=== PATIENT | male | born 1950 ===

== ENCOUNTER 2022-03-14 17:19 | Inpatient (IN) | payer OTHER ==
[~2022-03-14] VITALS: Ht 180.3 cm; Wt 108.5 kg
--- NOTE | 2022-03-15 16:44 | NUR ---
1530 arrived to room via gurney air transported from [facility]. pt restless,frequently attempting to get oob. pt states "i want to sit up, get my clothes and [facility]" pt able to state name, and that his left hip is broken, pt states he had 2 beer this morning and that uses "a lot" of marajuana pt making repeated attempts to call his on cell phone although has phone turned off and patient is unable to dial phone. Dr Gilmore here to see patient and orders received to transfer to PCU. pt transferred to pcu at 1630. dry pan charger Sendy Tate spoke with patients via phone to give her update on patient status
[2022-03-15] MEDS ORDERED: OMEP20ER PO (17:26)
[2022-03-15] MEDS ORDERED: Amlodipine Besyl5 MG PO (17:26)
[2022-03-15] MEDS ORDERED: Hair, Skin & N1 EACH PO (17:26)
[2022-03-15] MEDS ORDERED: CELE200 PO (17:27)
[2022-03-15] MEDS ORDERED: Cyclobenzaprine5 MG PO (17:28)
[2022-03-15] MEDS ORDERED: GLUC500 PO (17:30)
[2022-03-15] MEDS ORDERED: HYDR1TAB94 PO (17:30)
[2022-03-15] MEDS ORDERED: IBUP400 PO (17:31)
[2022-03-15] MEDS ORDERED: ONDA4 PO (17:31)
--- NOTE | 2022-03-15 18:42 | NUR ---
SHIFT SUMMARY PT ARRIVED TO PCU APPROX. 1634 VIA HOSPITAL BED. HE WAS VERY CONFUSED, AGITATED AND ANGRY AT TIMES. HE WAS ALERT TO SELF AND DEON ONLY. BP STABLE, HR SINUS TACHYCARDIA 100-120, SPO2>95% VIA ROOM AIR. HE DENIED FEELING NAUSEOUS WELL PAIN BUT APPEARED DIAPHORETIC, TREMULOUS AND AGITATED. SEE CIWA ASSESSMENT AND EMAR FOR MANAGEMENT OF ALCOHOL WITHDRAW. PT IS INCONTINENT OF URINE AND PER REPORT HAS HX OF PROSTATE CA. PER REPORT PT DRINKS APPROX. 7 BEERS/DAY, 21 CANS PER WEEK. PT STATED HE OCCASIONALLY DRINKS HARD ALCOHOL. SEE EMAR FOR PAIN MANAGEMENT. PT NOW APPEARS TO BE SLEEPING COMFORTABLY. CALL LIGHT IN REACH. PER REPORT, DEON IS ON HER WAY TO VISIT PT. BED ALARM IS ON.
[2022-03-16 03:56] LABS: BASOPHILS ABSOLUTE AUTO 0.02 K/mm3 (0.00-0.23); BASOPHILS PERCENT AUTO 0 % (0-2); EOSINOPHILS ABSOLUTE AUTO 0.06 K/mm3 (0.00-0.68); EOSINOPHILS PERCENT AUTO 1 % (0-6); Hematocrit 28.5 % (37.0-53.0); Hemoglobin 9.7 g/dL (13.5-17.5); IMMATURE GRAN ABSOLUTE AUTO 0.06 K/mm3 (0.00-0.10); IMMATURE GRAN PERCENT AUTO 1 % (0-1); LYMPHOCYTES ABSOLUTE AUTO 0.32 K/mm3 (0.84-5.20); LYMPHOCYTES PERCENT AUTO 5 % (21-46); MONOCYTES ABSOLUTE AUTO 0.77 K/mm3 (0.16-1.47); MONOCYTES PERCENT AUTO 12 % (4-13); Mean Corpuscular HGB 34.6 pg (26.0-34.0); Mean Corpuscular Volume 102 fL (80-100); Mean Platelet Volume 9.1 fL (9.1-12.4); NEUTROPHILS ABSOLUTE AUTO 5.15 K/mm3 (1.96-9.15); NEUTROPHILS PERCENT AUTO 81 % (41-73); Platelet Count 178 K/mm3 (150-400); RDW Coefficient Variation 12.7 % (11.7-14.2); RDW Standard Deviation 47.8 fL (35.1-46.3); White Blood Cell Count 6.38 K/mm3 (4.00-11.30)
[2022-03-16 04:14] LABS: Bun/Creatinine Ratio 15.9 (12.0-20.0); Calcium, Blood 8.7 mg/dL (8.5-10.1); Creatinine, Blood 0.82 mg/dL (0.60-1.20); Potassium, Blood 4.2 mmol/L (3.5-5.5)
--- NOTE | 2022-03-16 06:03 | NUR ---
SHIFT SUMMARY PT ALERT AND ORIENTED X3. SLEEPY THROUGHOUT THE NIGHT AFTER ATIVAN ADMINISTRATION FOR CIWAS. HR SR/ST 80-100'S. ON RA SATS OVER 93%. BP HYPERTENSIVE 170/160'S AT 0500, RELIEVED WITH HYDRALAZINE TO SYSTOLIC 120'S. IN LIGIA VEST THIS EVENING DUE TO FALL RISK. LAST CIWA 14. PER REPORT WAS INAPPROPRIATE TOWARDS STAFF DURING DAY BUT COOPERATIVE AND PLEASANT WITH THIS RN. NS INFUSING AT 100/HR. PT ASLEEP WITH CALL ALARM AT SIDE, WILL CONTINUE TO MONITOR UNTIL REPORT GIVEN TO ONCOMING RN
[2022-03-16 09:44] LABS: Percent Saturation 16.9 % (20.0-50.0)
--- NOTE | 2022-03-16 17:34 | NUR ---
END OF SHIFT SUMMARY: PATIENT HAS BEEN PLEASANT ALERT TIMES 2-3 COOPERATIVE WITH CARE, PAIN MANAGED PER EMAR, PATIENT HAS BEEN IN NO SIGN OF ACUTE DISTRESS. PAIN IS CONTROLLED. Q2 TURNS PROVIDED BY PATIENT MIXING MACHINE OPERATOR, THIS RN AND HOUSE MOVER SUPERVISOR. PATIENT HAS BEEN COOPERATIVE WITH CARE WILL NEED TO BE NPO AT 0000. PATIENT HAD XRAYS OF THE HIP, CT STILL PENDING. PATIENT STILL HAS CONDOM CATH FLOWING TO GRAVITY WELL. PATIENT DENIES CHEST PAIN, SOB, OR PRESSURE. POTENTIALLY IF STABLE OPERATION TOMORROW ACCORDING FROM PATIENT WITH ORTHOPEDIST. WILL CONTINUE TO MONITOR UNTIL SHIFT CHANGE. NO CONCERNS FROM THIS RN AT THIS TIME. CIWAS WERE 8 THIS AM, 9 BEFORE NOON,6 NOON, AND 6 EVENING.
--- NOTE | 2022-03-17 06:26 | NUR ---
SHIFT SUMMARY PT AOX3 W/SOME EPISODES OF CONFUSION AND DISORIENTATION TO TIME. EASILY REASSURED AND ORIENTED. FORGETS HE CAN URINATE THROUGH CONDOM CATH AT TIMES. BREATHING APPEARS DYSPNEIC, SOME EXERTION WITH ACTIVITY. SATS MAINTAIN FOR MOST OF SHIFT SOME EPISODES OF DESAT TO 70'S, COULD HAVE BEEN PT HOLDING BREATH TO BARE DOWN TO URINATE, PLACED ON 1 L O2 VIA NC TO MAINTAIN O2 SATS. MAINTAINS >98%. OCCASIONAL COUGH. SR 80'S W/FREQUENT PVCS AT TIMES. PAIN IN L LEG WELL CONTROLLED WITH ORDERED 50 MCG OF FENTANYL IV Q6P. PT REPORTS PAIN DOWN TO 5/10. POSITIONED FOR COMFORT. VISIBLE EXTERNAL ROTATION, PULSE STRONG, LIMB IS WARM, PT DENIES NUMBNESS OR TINGLING. SCD TO R CALF. NO ADDITIONAL MED NEEDED FOR WITHDRAWAL SX, LIBRIUM 50 MG GIVEN Q6 PER ORDER. ORDER OBTAINED FOR NS 100 MLS/HR D/T NPO AND PRE-OP STATUS. PT IS COOPERATIVE AND APPROPRIATE WITH STAFF. REPORTED A FULL BLADDER AND UNABLE TO URINATE, 358 MLS OF URINE SEEN ON BLADDER SCANNER BY ROSETTA HOWELL. THIS RN ENCOURAGES PT TO URINATE, PT REPORTS DIFFICULTY PEEING AT TIMES D/T HX OF PROSTATE CANCER AND HYDROCELECTOMY. AFTER ENCOURAGEMENT BY THIS RN TO FOCUS AND PEE AFTER REORIENTING TO CONDOM CATH CONNECTED TO DRAINAGE BAG, PT IS ABLE TO URINATE OUT SEVERAL 100 MLS OF URINE.
[2022-03-17 10:47] LABS: SARS-Cov-2 (COVID-19) PCR, MMC NEGATIVE (NEGATIVE)
--- NOTE | 2022-03-17 12:31 | NUR ---
03/17/22 1231 Olinda Shafer ANCEF 2G IVPB GIVEN BY DR MALDONADO AT 1211
--- NOTE | 2022-03-17 18:22 | NUR ---
END OF SHIFT SUMMARY: PATIENT HAS BEEN ON RA MOST OF THE DAY, EVEN AFTER SURGERY. WHICH MELISSA HAS ICE PACKS IN PLACE. BLEEDING ACCORDING TO SURGICAL STAFF WAS MILDLY MORE THAN USUAL. SLIGHT INCREASE TO OOZING. MARKED BY SETTLING RN AND MILLINERY WORKER. PATIENT DENIES CHEST PAIN, RR HAVE BEEN 16-18'S LIBRIUM HAS CONTROLLED CIWA Sx's CIWA THIS AM WAS 7, THAN BEFORE PATIENT LEFT FOR SURGERY WAS 6, ONCE PATIENT WAS SETTLED, PATIENT SLOWLY STARTED TO HAVE INCREASED CIWA'S AROUND 8-12. LIBRIUM NOON DOSE WAS HELD BECAUSE PATIENT WAS IN SURGERY. PATIENT IMPROVING IN MENTATION, PAROXSYMAL SWEAT, AGITATION ALL IMPROVED ONCE LIBRIUM WAS ONBOARD. PATIENT HAS BEEN SLIGHLTY HYPERTENSIVE, DECREASES WITH PRN PAIN MEDS. NO CONCERNS FROM THIS RN AT THIS TIME WILL CONTINUE TO MONITOR UNTIL SHIFT CHANGE.
--- NOTE | 2022-03-17 22:20 | NUR ---
DRESSING CHANGE DRESSINGS CHANGED TO INCISION SITES D/T SOME BLOOD POOLING UNDER AQUACEL DRESSINGS. SX RN ASSISTS THIS RN WHEN CALLED OVER TO INSPECT SITE. PRESSURE DRESSING APPLIED TO L UPPER SITE ON L LEG AND BORDERED GAUZE DRESSING APPLIED TO LOWER SITE AND REINFORCED WITH SOME FOAM TAPE FOR PRESSURE D/T SOME BLOOD LEAKING. PT DENIES NUMBNESS/TINGLING. SITE IS SWOLLEN AND FIRM TO TOUCH. SCDS TO BLE. PT IS HAVING SOME DISORIENTATION ONGOING SINCE START OF SHIFT, HAS CALLED MULTIPLE TIMES, REPEATS CONCERN FOR BEING TOLD HE CANNOT GO HOME UNTIL HE MAKES SOME FORM OF PAYMENT. THIS RN TRIES TO REASSURE PT, PT REORIENTED TO LOCATION, SITUATION AND PLAN FOR THE NIGHT BY THIS RN. MEDICATED FOR PAIN PER ORDERS.
--- NOTE | 2022-03-18 00:11 | NUR ---
PT UPDATE EPISODE OF SIGNIFICANT APNEA, PT SATS INTO 70'S AND MAINTAINED FOR SEVERAL SECONDS, THIS RN AWAKENS PT, NC TURNED UP TO 4 L. PT STATES HE SOMETIMES USES CPAP AT HOME.
--- NOTE | 2022-03-18 02:27 | NUR ---
PT UPDATE PT APPEARS TO SLEEP QUIETLY IN BED, SATS >95% ON RA AT THIS TIME. CPAP WAITING IN ROOM IF NEEDED.
[2022-03-18 05:42] LABS: Hematocrit 25.8 % (37.0-53.0); Hemoglobin 8.8 g/dL (13.5-17.5); Mean Corpuscular HGB 34.5 pg (26.0-34.0); Mean Corpuscular HGB Conc 34.1 g/dL (31.5-36.5); Mean Corpuscular Volume 101 fL (80-100); Mean Platelet Volume 9.5 fL (9.1-12.4); Platelet Count 205 K/mm3 (150-400); RDW Coefficient Variation 12.6 % (11.7-14.2); RDW Standard Deviation 47.2 fL (35.1-46.3); Red Blood Cell Count 2.55 M/mm3 (4.30-5.90); White Blood Cell Count 5.12 K/mm3 (4.00-11.30)
[2022-03-18 06:03] LABS: Bun/Creatinine Ratio 19.8 (12.0-20.0); Creatinine, Blood 0.66 mg/dL (0.60-1.20); Potassium, Blood 4.2 mmol/L (3.5-5.5)
--- NOTE | 2022-03-18 07:27 | NUR ---
SHIFT SUMMARY PT HAD ON AND OFF CONFUSION THROUGHOUT SHIFT, SEEMED TO FIXATE ON CONCERNS REGARDING [facility] AND PAYMENT FOR SERVICES. WAS ALSO CONCERNED FOR GETTING TRANSPORT TO [facility]. THIS RN TRIED TO REASSURE PT THROUGHOUT SHIFT. MULTIPLE CALLS TO SPOUSE BY PT AT START OF SHIFT. PT HAD SOME CONTINUED BLEEDING IN AQUACEL DRESSINGS, PRESSURE DRESSING APPLIED AND BORDER GAUZE DRESSING TO LOWER SITE ON L LEG. PT SONOLENT DURING PERIODS IN NIGHT, EPISODE OF APNEA ON RA, PT SATS DOWN TO 70'S AND TOOK SEVERAL SECONDS AND THIS RN GENTLY RUBBING PT'S CHEST TO BRING SATS BACK UP ON 4 L VIA NC. PROVIDER NOTIFIED AND ORDER FOR CPAP OBTAINED. 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 TOLERATED OFF. PAIN FROM SX SITE WELL TOLERATED WITH PRN MEDS. NO SEVERE WITHDRAWAL SX NOTED BY THIS RN DURING SHIFT. ADMIN LIBRIUM PER ORDER, DELAYED AM DOSE AND DEFERRED TO DAY RN JUDGEMENT D/T SOMNOLENCE AND PT C/O THAT MEDS MAKE HIM FEEL LIKE HE CANNOT THINK CLEARLY. CONDOM CATH REMOVED D/T PT STRUGGLING WITH FORGETFULNESS REGARDING ITS USE AND SEEMED TO BE HOLDING HIS BLADDER. APPEARED TO VOID BETTER WHEN CALLING TO USE URINAL. ATTENDS IN PLACE FOR ANY INCONTINENCE.
[2022-03-18 13:06] LABS: Hemoglobin 8.4 g/dL (13.5-17.5)
--- NOTE | 2022-03-18 15:17 | NUR ---
Spiritual care visit conducted. Upon responding to a repid response to for the rm and seeing pt's spouse, Mindi, by brought to the ED, Palliative Care RN Jayjay Jones and I visit with pt. After Jayjay introduces himself and establishes rapport he dismisses himself. i talk with pt about his relationship with his of 40 yrs, his concern about her while he is stuck in a bed and his helplessness. He also talks about his Taoist background, his Bubbhist beliefs and his love of marijuana. He explains that he grows it but goes smoke it anymore. He makes Marijuana cookies. He asks me to say a prayer for him but then adds comments through out the prayer that were pretty commical. I provide therapeutic listening, normalize his experience and provide prayer. Pt responds well and shows signs of reduced stress. I will continue to remain available.
--- NOTE | 2022-03-18 15:18 | NUR ---
HEAD BUTLER providing care on Pt's spouse upon arrival. Pt's spouse is transported to ED. Pt reports his spouses experiences seizures although hasn't experienced one in some time. 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 This RN thanked Pt for his service. Ended visit to allow Mill Feeder Fazal to offer spiritual care. Palliative Care will remain available.
--- NOTE | 2022-03-18 19:42 | NUR ---
END OF SHIFT: NATTY HAS BEEN 90'S SR. MENTATION IS MINIMALLY WORSE THAN THE PREVIOUS NIGHTS I HAD THE PATIENT. PAITNET HAD RIPPED OUT IV FROM [facility], AND POEWRGLIDE WAS PLACED BY CHARGE ON SHANTE. PATIENT HAS BEEN ON RA. CPAP AT NIGHT DUE TO APNEA, NATTY HAS BEEN MEDICATED PER AUG, FLUIDS RUNNING MOST OF THE DAY NONE CURRENLTY. PATIENT CIWA THIS AM WAS 7 NOON WAS 10 AND EVENING WAS 13-15. PATIENT HAS INCREASED AGITATION AND UNDERSTANDING OF HIS SITUATION. PATIENT WAS ABLE TO STAND MULTIPLE TIMES THORUGH THE DAY EVEN [facility]. HOWEVER WITH MENTATION CHANGE THIS TICKET AGENT FELT UNSAFE TO STAND PATIENT. WILL CONTINUE TO MONITOR UNTIL SHIFT CHANGE NO FURTHER CONCERNS FROM THIS TICKET AGENT.
--- NOTE | 2022-03-19 01:30 | NUR ---
UPDATE CALL PLACED TO RESIDENT REGARDING PATIENT'S INCREASE IN CIWAs AND PATIENT ATTEMPTING TO GET OUT OF BED D/T CONFUSION. CIWA MAX 17 AT THIS TIME. MEDICATED PER EMAR. PATIENT PLACED IN LIGIA VEST FOR SAFETY. CONCERN FOR PATIENT ONLY GETTING SCHEDULED LIBRIUM FOR WITHDRAWL SYMPTOMS. RESIDENT TO PLACE NEW ORDERS.
[2022-03-19 05:52] LABS: Hematocrit 20.8 % (37.0-53.0); Hemoglobin 6.9 g/dL (13.5-17.5); Mean Corpuscular HGB 34.3 pg (26.0-34.0); Mean Corpuscular HGB Conc 33.2 g/dL (31.5-36.5); Mean Corpuscular Volume 104 fL (80-100); Mean Platelet Volume 9.6 fL (9.1-12.4); Platelet Count 189 K/mm3 (150-400); RDW Coefficient Variation 12.8 % (11.7-14.2); RDW Standard Deviation 48.4 fL (35.1-46.3); Red Blood Cell Count 2.01 M/mm3 (4.30-5.90); White Blood Cell Count 5.26 K/mm3 (4.00-11.30)
[2022-03-19 06:19] LABS: Bun/Creatinine Ratio 20.6 (12.0-20.0); Calcium, Blood 7.9 mg/dL (8.5-10.1); Creatinine, Blood 0.68 mg/dL (0.60-1.20); Potassium, Blood 3.9 mmol/L (3.5-5.5)
--- NOTE | 2022-03-19 07:12 | NUR ---
SHIFT SUMMARY PATIENT ALERT, ORIENTED x2-3 FOR MAJORITY OF NIGHT. CIWAs COMPLETED Q1-2, MAX 17 OVERNIGHT. MEDICATED PER EMAR. SEE PREVIOUS NOTE. VSS, PATIENT REMAINED ON RA WITH O2 SAT >90%. USING URINAL IN BED, INCONTINENT AT TIMES. NO BM THIS SHIFT. LEFT HIP DRESSING CHANGED THIS SHIFT. PRESSURE DRESSING FROM DAY SHIFT REMOVED, INCISION CLEANED AND AQUACEL PLACED. TRACK MECHANIC CALLED HOSPITALIST REGARDING PATIENT HgB THIS MORNING, NEW ORDERS PLACED. CAMERA AND BED ALARM ON. NO OTHER SIGNIFICANT CHANGES, WILL REPORT TO DAY SHIFT RN.
[2022-03-19 08:26] LABS: Percent Saturation 19.6 % (20.0-50.0)
--- NOTE | 2022-03-19 13:50 | NUR ---
Spiritual care visit conducted. Pt immediately tells me about the how aggitated he is because he does not have his Marijuana or his alcohol. He also talks about his frustration with his , his hip and his overall pain throughout his body. He says that he is a very aggressive person and that he will fight through whatever extremes necessary to recover. He explainas that he wants to move to [place] because he feels more at peace there. He found that peace in [place] and loved the temples there. He uses those scenes in his mind to get back to his center. I listen empathically, reinforce helpful attitudes and practices and provide a calming presence.
[2022-03-19 14:30] LABS: Hematocrit 23.9 % (37.0-53.0)
[2022-03-19 15:10] LABS: International Normalized Ratio 0.98; Prothrombin Time Results 10.3 Sec (9.7-11.5)
--- NOTE | 2022-03-19 18:42 | NUR ---
SHIFT SUMMARY PT INTERMITTENTLY CONFUSED THROUGHOUT THE SHIFT. CIWAS HAVE BEEN ELEVATED SO PT GIVEN ORAL ATIVAN AND LIBRIUM WITH IMPROVEMENT IN MOOD AND SLEEP. HE DOES NOT FOLLOW DIRECTIONS WELL REGARDING WEIGHT BEARING ON THE LEFT LEG SO WAS PUT ON BEDREST. INCISION WITH AQUACEL DRESSING IN PLACE AND SOME BLOODY DRAINAGE. SOME WARMTH AND SWELLING TO THE LEFT LEG. PT GIVEN IV FENTANYL X2 FOR PAIN IN THE LEFT HIP WITH MOVING AND CHANGES. PT HAS BEEN IN A LIGIA VEST THROUGHOUT THE SHIFT HE CONTINUES TO ATTEMPT GETTING OUT OF BED AND DOES NOT FOLLOW INSTRUCTIONS. VERY UNSTEADY ON HIS FEET AND VERY WEAK. HE DID RECEIVE ONE UNIT OF PRBCS WITH INCREASE IN HGB TO 8.0 FROM 6.9. PT ORIENTED TO SELF, , AND SITUATION BUT UNSURE WHERE HE IS AND WHY HE CAN'T GO HOME.
--- NOTE | 2022-03-19 22:20 | NUR ---
CARE ASSUMPTION: PATIENT IN BED WITH LIGIA VEST IN PLACE. A&O TO SELF AND THAT HE IS IN THE HOSPITAL B/C HE FELL. BELIEVES THE DATE TO BE A FRIDAY IN AUGUST 1921. STATES HIS BIRTHDAY 06/26/1951 INSTEAD OF 1950. AQUACEL DRESSING C/D/I. POWERGLIDE FLUSHES. PATIENT CIWA=8, PAIN RATING 8/10. MEDICATED PER EMAR. TELE MONITOR REPORTS VENT BIGEMINY EPISODES AND AN INCREASE IN PVCS ON TELEMETRY. VSS ON RA. SLOW TO RESPOND BUT COOPERATIVE WITH CARE. BED LOW WITH CALL LIGHT IN PLACE.
[2022-03-20 03:45] LABS: Hematocrit 24.3 % (37.0-53.0); Hemoglobin 8.4 g/dL (13.5-17.5); Mean Corpuscular HGB 34.9 pg (26.0-34.0); Mean Corpuscular HGB Conc 34.6 g/dL (31.5-36.5); Mean Corpuscular Volume 101 fL (80-100); Mean Platelet Volume 9.4 fL (9.1-12.4); Platelet Count 227 K/mm3 (150-400); RDW Coefficient Variation 14.3 % (11.7-14.2); RDW Standard Deviation 53.1 fL (35.1-46.3); Red Blood Cell Count 2.41 M/mm3 (4.30-5.90); White Blood Cell Count 5.52 K/mm3 (4.00-11.30)
[2022-03-20 04:09] LABS: Bun/Creatinine Ratio 15.8 (12.0-20.0); Calcium, Blood 8.5 mg/dL (8.5-10.1); Creatinine, Blood 0.63 mg/dL (0.60-1.20); Magnesium, Blood 1.4 mg/dL (1.6-2.4); Potassium, Blood 3.6 mmol/L (3.5-5.5)
--- NOTE | 2022-03-20 05:24 | NUR ---
SHIFT SUMMARY: PATIENT CIWAS 8-10, A&O TO SELF AND INTERMITTENTLY LOCATION. AQUACEL DRESSING IN PLACE ON LEFT HIP - C/D/I. VS WNL. PULSES FELT BILATERALLY IN EXTREMETIES. LEFT THIGH SLIGHTLY LARGER AND WARM TO THE TOUCH. MEDICATED PER EMAR. PATIENT SLEPT 2-3 HRS DURING THE NIGHT, IS MORE AGITATED AND CONFUSED THAN BEGINNING OF SHIFT. BED LOW, SIDERAILS UP X4, LIGIA VEST IN PLACE, AND BED ALARM SET. PATIENT HAS TRIED TO GET OUT OF BED MULTIPLE TIMES T/O SHIFT STATING "I DIDN'T KNOW I WAS ON BEDREST" THOUGH HAS BEEN EDUCATED EVERY TIME STAFF ENTERS ROOM. CALL LIGHT IN REACH BUT PATIENT MISTAKES IT FOR PHONE. WILL CONTINUE TO MONITOR AND REPORT TO ONCOMING RN.
[2022-03-20 15:34] LABS: Hematocrit 26.2 % (37.0-53.0); Hemoglobin 8.6 g/dL (13.5-17.5)
--- NOTE | 2022-03-20 16:14 | NUR ---
Spiritual care visit conducted. Pt moves through some emotional highs and lows. One moment he tells me that he is very depressed, the next moment he expresses how strong he is and is able to pull through anything. Early in our conversation he talks about his love for his , meditation and marijuana , later he is cussing at her (She is not present to hear it) for not picking up the phone when he calls and the then again later he explains how he misses his and his dog. He seems to be encouraged by talking about how strong he is and that can get him off the subject of being angry about having to stay in the hospital. I provide companionship and encouragement. Pt responds well and shows signs of reduced stress.
--- NOTE | 2022-03-20 19:28 | NUR ---
SHIFT SUMMARY PT INCREASINGLY CONFUSED THROUGHOUT THE SHIFT WITH WORSENING HALLUCINATIONS. HE IS VERY AGITATED AND TRYING TO GET OUT OF BED FREQUENTLY. PT MOOD LABILE AND TEARFUL. PT INAPPROPRIATE WITH STAFF VERBALLY. PT UP WITH PHYSICAL THERAPY AND TWO RNS TO COMMODE, FOLLOWING DIRECTIONS SLIGHTLY BUT IS PUTTING TOO MUCH PRESSURE ON THE LEFT LEG. LEFT HIP AQUACEL DRESSING CHANGED THIS SHIFT. BLOOD TO THE DRESSING. PT ALERT AND ORIENTED TO SELF AND ONLY. MEDICATED WITH LIBRIUM AND ATIVAN THROUGHOUT THE SHIFT D/T INCREASED CIWA SCORES. VSS. PT STILL ON RA. NO APNEIC EPISODES. LIGIA IN PLACE THROUGHOUT THE SHIFT.
[2022-03-21 04:02] LABS: Hematocrit 24.9 % (37.0-53.0); Hemoglobin 8.4 g/dL (13.5-17.5); Mean Corpuscular HGB 33.9 pg (26.0-34.0); Mean Corpuscular HGB Conc 33.7 g/dL (31.5-36.5); Mean Corpuscular Volume 100 fL (80-100); Mean Platelet Volume 9.2 fL (9.1-12.4); Platelet Count 224 K/mm3 (150-400); RDW Standard Deviation 51.4 fL (35.1-46.3); Red Blood Cell Count 2.48 M/mm3 (4.30-5.90); White Blood Cell Count 3.71 K/mm3 (4.00-11.30)
[2022-03-21 04:23] LABS: Albumin, Blood 2.6 g/dL (3.4-5.0); Albumin/Globulin Ratio 0.8 (0.8-1.8); Bilirubin, Total 0.7 mg/dL (0.1-1.0); Bun/Creatinine Ratio 14.4 (12.0-20.0); Calcium, Blood 8.5 mg/dL (8.5-10.1); Creatinine, Blood 0.56 mg/dL (0.60-1.20); Globulin, Blood 3.4 g/dL (2.2-4.0); Magnesium, Blood 1.5 mg/dL (1.6-2.4); Potassium, Blood 3.6 mmol/L (3.5-5.5)
--- NOTE | 2022-03-21 05:44 | NUR ---
SHIFT SUMMARY: PATIENT VS WNL ON RA, DENIES SOB OR CHEST PAIN. HIP DRESSING C/D/I. MEDICATED PER EMAR. PATIENT SLEPT 8-10 HRS WITH BRIEF MOMENTS OF WAKEFULNESS DURING WHICH HE WAS ORIENTED TO SELF ONLY. DECLINED TO USE CPAP AND DENIES SLEEP APNEA THOUGH O2 SATS DROP <90% FOR BRIEF MOMENTS WHILE HE SLEEPS. PATIENT CALLS OUT FOR DEON OR NURSE - DOES NOT USE CALL LIGHT OR USES INAPPROPRIATELY. LIGIA VEST AND SIDE RAILS UP X4 FOR SAFETY. PER DAY RN, DEON DOES NOT WANT PATIENT CALLING HER. BED LOW WITH CALL LIGHT IN REACH AND ALARM SET. WILL CONTINUE TO MONITOR UNTIL SHIFT CHANGE REPORT GIVEN.
--- NOTE | 2022-03-21 08:07 | NUR ---
NURSING PCU DAYSHIFT: Assumed care of pt at approx 0700. Alert, actively experiencing visual hallucinations, oriented to self/family/year only. Recent L hip fx repair, dressing in place w/small ooze noted, site stable. Scattered bruising to ext's, skin otherwise intact. C/O 5/10 L hip pain w/movement, denies discomfort at rest. [place] vest in place d/t pt's frequent attempts to get OOB, fairly redirectable though has a difficult time following commands. Tele in place, NSR, no c/o CP/pressure, hypertensive prior to a.m. meds, trace-1+ BLE edema (L>R). L/S cta t/o, O2 sat 100% on RA while awake though experiences apnea while asleep w/desaturation to 50's, respirations even and unlabored when awake, occ dry/COURT ORDERLY cough, denies dyspnea. Abd SNT, BT+, voids small amts of casey urine. PIV x1, s/l. No s/s of acute distress at this time. Seen by ortho and PMD, new d/o received. Pt status changed to med w/o tele, mg rider to be administered, awaiting new lab draw results. Pt denies any current needs, sitting up in bed eating breakfast, cont to monitor for changes.
--- NOTE | 2022-03-21 10:00 | NUR ---
ASSUMED CARE: REPORT RECIEVED FROM NISHANT MADRIGAL. PATIENT IS OOB TO THE RECLINER. HE CONTINUES TO BE CONFUSED WITH LIGIA VEST IN PLACE. PATIENT DENIES NEEDS AT THIS TIME. CALL LIGHT IN REACH, WILL CONTINUE TO MONITOR.
--- NOTE | 2022-03-21 17:54 | NUR ---
SUMMARY: Patient has continued to be disoriented t/o the shift occasionally having hallucinations. He is oriented to self and family. Minimal C/O pain that was relieved with tylenol. LS CTA, Biox high 90s on RA. BT+, pt has not had BM in 6 days. He was able to have a very small bowel movement on the BSC this shift. Pt has inicision to left hip with aquacel dressing minimal amout of drainage noted. VSS. Patient has been down graded to surgical status. No acute changes this shift. Will report to oncoming RN.
[2022-03-22 03:52] LABS: Hemoglobin 8.7 g/dL (13.5-17.5); Mean Corpuscular HGB Conc 33.5 g/dL (31.5-36.5); Mean Corpuscular Volume 102 fL (80-100); Mean Platelet Volume 9.3 fL (9.1-12.4); Platelet Count 237 K/mm3 (150-400); RDW Coefficient Variation 13.9 % (11.7-14.2); RDW Standard Deviation 51.5 fL (35.1-46.3); Red Blood Cell Count 2.56 M/mm3 (4.30-5.90); White Blood Cell Count 4.56 K/mm3 (4.00-11.30)
[2022-03-22 04:13] LABS: Bun/Creatinine Ratio 15.1 (12.0-20.0); Calcium, Blood 8.4 mg/dL (8.5-10.1); Creatinine, Blood 0.66 mg/dL (0.60-1.20); Magnesium, Blood 1.5 mg/dL (1.6-2.4); Potassium, Blood 3.8 mmol/L (3.5-5.5)
--- NOTE | 2022-03-22 06:06 | NUR ---
SHIFT SUMMARY PT ALERT AND ORIENTED X3. 70-80'S. BP STABLE. ON RA SATS OVER 98%. AFEBRILE. INTERMITTENT CONFUSION. REMAINS IN LIGIA, UNAWARE OF LIMITATIONS OF L FEMUR FRACTURE. DIFFICULTY WITH URINATION. INCONTINENT. IN BED SLEEPING WITH CALL ALARM AT SIDE, WILL CONTINUE TO MONITOR UNTIL REPORT GIVEN TO ONCOMING RN.
--- NOTE | 2022-03-22 17:52 | NUR ---
ASSUMED CARE OF PT AT 0700 THIS AM. PT HAS BEEN ALERT AND PLEASANT T/O THE SHIFT, USING CALL LIGHT FOR NEEDS AND HAS NOT SET OFF BED ALARM. PT WORKED WITH PT/OT TODAY AND HAS GOTTEN OOB INTO THE CHIAR/COMMODE. PT NEEDS REMINDERS TO NOT PUT WEIGHT ON HIS L LEG. PT APPEARS TO BE INTERMITTENTLY CONFUSED, BUT SEEMS HIS MENTATION OVERALL IS IMPROVING. NO ACUTE EVENTS T/O THE SHIFT, SEE DOCUMENTED VS AND ASSESSMENT. NO CHANGES TO PT CONDITION NOTED AT THIS TIME, CALL LIGHT IN REACH, BED ALARM ON, WILL CONTINUE TO MONITOR AND GIVE REPORT TO NOC SHIFT RN.
--- NOTE | 2022-03-22 21:46 | NUR ---
PT. BEING TRANSFERRED OUT CURRENTLY TO MEDICAL FLOOR ROOM 342 WITH TECH AND RN ASSISTANCE.
--- NOTE | 2022-03-23 03:58 | NUR ---
WOOD AND WOOD PRODUCTS LABOURER SUMMARY PT XFER F/PCU; APROX ARRIVAL 0. PT ADMITT W/LEFT HIP FX AND ETOH; CIWA ASSESSMENTS DISCONTINUED; AWAITING PACEMENT. PT IS A/OX2-3; CONFUSED AND FORGETFUL BUT ABLE TO REORIENT AND REDIRECT. PT XFERED T/MED FLOOR W/ORDER FOR VEST RESTRAINT; PT ATTEMPTING TO GET OUT OF BED AND FORGETTING LIMITATIONS. PT REMAINED IN VEST RESTRAINT T/O THE NIGHT. PT FREQUENTLY FOUND LYING ON THE EDGE OF THE BED W/RIGHT LEG OVER THE SIDE. PT DENIED TRYING TO GET OUT OF BED BUT ASKED REPEATEDLY TO BE OUT OF BED AND OUT OF RESTRAINT. PT AWAKE INTERMITTANTLY T/O THE NIGHT. PT WOULD BECOME WORRIED AND TEARFUL ABOUT HIS . REMINDED PT PCU STAFF TALKED TO THE EVENING OF 03/22. PT HAS A PHONE AND IPAD IN POSSESSION; OFTEN CONFUSED ABOUT HOW TO USE THEM AND THOUGHT HE HAD THE WRONG DEVICES. ON ROOM AIR. VSS. CALL LIGHT IS IN REACH BUT NOT ALWAYS USING APPROPRIATELY. PT ABLE TO USE A URINAL IN THE BED BUT HAVING SOME INCONTIENCE; ATTENDS IN PLACE.
--- NOTE | 2022-03-23 15:52 | NUR ---
SHIFT SUMMARY PT UP TO BSC DURING SHIFT REPORT, INCONTINENT OF BOWELS D/T URGENCY. PT CLEANED AND ASSISTED BACK INTO BED. PT IS VERY CONFUSED AND DISORIENTED AND DOES NOT REMEMBER HIS LIMITATIONS. PT FREQUENTLY ATTEMPTING TO GET OOB FOR SOMETHING, FORGETING WHERE HE IS. PT REMAINS IN LIGIA VEST FOR SAFETY OF L HIP FX. PT ASSISTED OOB TO CHAIR WITH P/T. PT LATER BACK TO BED THIS AFTERNOON. BED BATH AND LINEN CHANGE DONE. PT HAS BEEN CONTINENT AND INCONTINENT OF URINE AT TIMES. STRAINS TO VOID MOST OF THE TIME. PT REPORTED THAT HE HAD PROSTATE CA HX, IT IS UNCLEAR IF PT IS A GOOD HISTORIAN. DR HOLLIS IN TO SEE PT THIS AM AND AGAIN THIS AFTERNOON. FLOMAX REQUESTED AND ORDERED. PER AM SHIFT REPORT, PT DID NOT SLEEP MUCH LAST NIGHT AND STILL HAS NOT GONE TO SLEEP. PT IS VERY BUSY AND FREQUENTLY ON THE CALL LT. DR LOPEZ TO SEE PT AGAIN ON FRIDAY, PER REPORT. PLAN IS FOR PT TO GO TO SNF AT D/C. WILL CONTINUE TO MONITOR.
[2022-03-24 04:45] LABS: Albumin, Blood 2.6 g/dL (3.4-5.0); Anion Gap 6 mmol/L (6-16); Blood Urea Nitrogen 9 mg/dL (8-24); Bun/Creatinine Ratio 13.8 (12.0-20.0); CO2, Blood 27 mmol/L (21-32); Calcium, Blood 8.6 mg/dL (8.5-10.1); Chloride, Blood 103 mmol/L (98-108); Creatinine, Blood 0.65 mg/dL (0.60-1.20); Glomerular Filtration Rate 101 (60-); Glucose, Blood 101 mg/dL (70-99); Magnesium, Blood 1.1 mg/dL (1.6-2.4); Phosphorus, Blood 3.3 mg/dL (2.5-4.9); Potassium, Blood 4.1 mmol/L (3.5-5.5); Sodium, Blood 136 mmol/L (136-145)
--- NOTE | 2022-03-24 04:56 | NUR ---
CRITICAL VALUE CALL TO DR. BENAVIDES - MAGNESIUM 1.1. DR. BENAVIDES WITH ORDERS FOR MAG IV 2 GRAMS. RN TO UPDATE ORDERS.
--- NOTE | 2022-03-24 05:30 | NUR ---
PAULA HAD A CRITICAL LOW VALUE OF MAGNESIUM 1.1. HE RECEIVED 2GRAM IV REPLACEMENT. PAULA USED THE URINAL INDEPENDENTLY AT BEDSIDE. ROOM AIR. LIGIA VEST RESTRAINTS IN PLACE DUE TO HIGH FALL RISK AND IMPULSIVITY. 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 BED IN LOWEST POSITION, CALL LIGHT WITHIN REACH. RN WILL CONTINUE TO MONITOR AND GIVE REPORT TO ONCOMING NURSE.
--- NOTE | 2022-03-24 18:32 | NUR ---
END OF SHIFT SUMMARY: PATIENT REPORTED SOME PAIN AT REST AND PAIN WHEN COMPLETING PT EXERCISES OR ROLLING IN BED. PATIENT IS MOTIVATED TO COMPLETE EXERCISES AND WORK WITH PT TO REGAIN MOBILITY. PATIENT IS ABLE TO MAKE HIS NEEDS KNOWN. PATIENT DISPLAYS CONFUSION AND STML. PATIENT HAS DIFFICULTY COMPLETING HIS STATEMENTS AT TIMES AND HAS DIFFICULTY COMPREHENDING EDUCATION OR EXPLANATIONS FROM STAFF AND RN. PATIENT USES CALL LIGHT APPROPRIATELY, BUT WILL CALL OUT FOR HELP IF STAFF IS NOT IN THE ROOM IMMEDIATELY. PATIENT DID NOT SET OFF HIS BED ALARM OR ATTEMPT TO CLIMB OUT OF BED. PATIENT HAD FECAL URGENCY AND FREQUENCY. MULTIPLE BOWEL MOEVMENTS. PATIENT WAS VOIDING ABOUT 125 ML PER ATTEMPT IN THE MORNING AND UP TO 375 ML PER ATTEMPT IN THE EVENING. PATIENT'S IS UNABLE TO VISIT TOMORROW. SHE IS REQUESTING A PHONE CALL FROM THE MD AND/OR CARE MANAGEMENT TO DISCUSS THE PATIENT'S PLAN OF CARE.
--- NOTE | 2022-03-25 04:31 | NUR ---
SOFTWARE ENGINEER DEVELOPER SUMMARY AWAKE AT INTERVALS. CALLING OUT, CONFUSED STATEMENTS. HIGH FALL RISK, LIGIA VEST IN USE TO PREVENT FALLS OUT OF BED. VSS. CALL LIGHT IN REACH. WILL CONTINUE TO MONITOR. LEFT HIP DRESSING INTACT. INCONT OF FECES AND URINE. LINEN CHANGED.
--- NOTE | 2022-03-25 06:01 | NUR ---
CRITICAL LAB MAGNESIUM LEVEL 1.1 CALLED TO , ORDERS FOR 2 GM MAGNESIUM IV X 1 NOW OBTAINED, AWAITING MED FROM PHARMACY
[2022-03-25 15:32] LABS: Hematocrit 27.3 % (37.0-53.0); Hemoglobin 9.3 g/dL (13.5-17.5)
--- NOTE | 2022-03-25 19:00 | NUR ---
SHIFT SUMMARY PT AWAKE AT START OF SHIFT, TALKING TO HIMSELF AND CALLING OUT. PT REMAINS VERY CONFUSED AND DISORIENTED. PT IS ORIENTED TO HIMSELF, BUT DOES NOT EVEN KNOW WHEN HE IS TALKING TO HIS . REPORTED BRAIN DAMAGE 10 YRS AGO WITH INCREASED DEMENTIA SINCE AND ESPECIALLY INCREASING PAST 2 YRS. ALSO REPORTED PT'S DRINKING MAKING IT WORSE. PT ABLE TO WORK WITH THERAPY TODAY AND ABLE TO GET OOB TO CHAIR AND BSC. PT IS CONTINENT AND INCONTINENT OF BOWEL AND BLADDER. BLACK STOOLS X2 TODAY. DR MOSLEY NOTIFIED; NEW ORDERS PLACED. PT MEDICATED FOR C/O PAIN X1 WITH TYLENOL. NO FURTHER C/O. DRAFTER MARINE TO CALL WITH PT UPDATE IF POSSIBLE TOMORROW. PT TO D/C TO SNF WHEN READY. CALL LT IN REACH. ABLE TO MAKE NEEDS KNOWN.
--- NOTE | 2022-03-25 23:24 | NUR ---
ASSISTED TO BEDSIDE COMMODE, DARK LOOSE STOOL OUTCOME, STOOL SAMPLE SENT TO LAB FOR TESTS. PLACED BACK IN BED WITH LIGIA VEST, HE REMAINS HIGH FALL RISK AND DOES NOT EASILY REDIREDT. CALL LIGHT IN REACH. RAILS UP X 3
--- NOTE | 2022-03-26 04:17 | NUR ---
SOFTWARE PRODUCT MANAGER SUMMARY BP ELEVATED OTHERWISE VSS. INTERMITENT CONFUSION WITH STATEMENTS. WAS ASSISTED TO BEDSIDE COMMODE, FECAL SPECIMEN SENT TO LAB PER ORDERS FOR TESTS. LIGIA VEST REMAINS IN USE HE IS VERY UNSTEADY WITH LEFT HIP FX/SURGERY AND CONTIUES TO TRY TO GET OOB FOR PERSONAL REASONS AND DIFFICULT TO REDIRECT. POTENTIAL DANGER TO SELF. RECEIVED MEDS AT HS FOR AGITATION AND PAIN - SEE MAR FOR DETAILS. CURRENTLY RESTING QUIETLY WITHOUT NOTED ACUTE DISTRESS. CALL LIGHT IN REACH AND RAILS UP X 3.
[2022-03-26 04:36] LABS: Hematocrit 26.3 % (37.0-53.0); Hemoglobin 8.7 g/dL (13.5-17.5); Mean Corpuscular HGB 33.3 pg (26.0-34.0); Mean Corpuscular HGB Conc 33.1 g/dL (31.5-36.5); Mean Corpuscular Volume 101 fL (80-100); Mean Platelet Volume 9.4 fL (9.1-12.4); Platelet Count 315 K/mm3 (150-400); RDW Standard Deviation 51.4 fL (35.1-46.3); Red Blood Cell Count 2.61 M/mm3 (4.30-5.90)
[2022-03-26 04:50] LABS: Albumin, Blood 2.7 g/dL (3.4-5.0); Anion Gap 7 mmol/L (6-16); Blood Urea Nitrogen 8 mg/dL (8-24); Bun/Creatinine Ratio 10.8 (12.0-20.0); CO2, Blood 26 mmol/L (21-32); Calcium, Blood 8.7 mg/dL (8.5-10.1); Chloride, Blood 101 mmol/L (98-108); Creatinine, Blood 0.74 mg/dL (0.60-1.20); Glomerular Filtration Rate 97 (60-); Glucose, Blood 98 mg/dL (70-99); Magnesium, Blood 1.4 mg/dL (1.6-2.4); Phosphorus, Blood 3.8 mg/dL (2.5-4.9); Potassium, Blood 4.1 mmol/L (3.5-5.5); Sodium, Blood 134 mmol/L (136-145)
--- NOTE | 2022-03-26 07:39 | NUR ---
RN CALLED DR. SUÁREZ TO RENEW SOFT LIGIA VEST RESTRAINT, PT IS IMPULSIVE AND FORGETFUL TO HIS OWN LIMITATIONS. HE IS S/P LEFT HIP FRACTURE REPAIR ON 03/20, AND WILL ATTEMPT TO CLIMB OUT OF BED. 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 RN REQUESTED TO INCREASE SEROQUEL AT HS FROM 12.[address] MOSLEY WILL REVIEW PT WHEN SHE ROUNDS.
--- NOTE | 2022-03-26 07:57 | NUR ---
RN PLACED PHONE CALL TO DR. SUÁREZ TO DISCUSS VENOUS LOWER EXTREMITY ORDERED FOR TODAY, PER IMAGING DEPT REQUEST. PREVIOUS CT WAS DONE AND REPORTED THAT THE VASCULAR STRUCTURES WERE UNREMARKABLE. DR. MOSLEY STATES NO NEED TO CONTINUE WITH LLE DOPPLER STUDY. RN TO UPDATE ORDERS.
[2022-03-26 10:40] LABS: Stool Occult Blood Guaiac 1 Pos (Neg)
--- NOTE | 2022-03-26 17:29 | NUR ---
SHIFT SUMMARY PT REMAINS IN LIGIA VEST, HE IS A HIGH RISK FOR FALLS SECONDARY TO ETOH RELATED DEMENTIA. HE IS A TWO PERSON PIVOT ASSIST WITH GB AND FWW TO THE BSC FOR BM'S, USES THE URINAL AT BEDSIDE. IV ACCESS IN LFA. HE IS S/P LEFT HIP FRACTURE REPAIR ON 03/20. AQUACELL DRESSINGS CHANGED DUE TO SATURATION. HE IS TOE TOUCH WEIGHT BEARING TO LEFT HIP. PLAN IS TO DISCHARGE TO SNF FOR REHAB. DURING SHIFT, HE HAS ALTERNATED BETWEEN TEARFUL AND AGITATED AND CONFUSED. USUALLY HE IS COOPERATIVE WITH CARE AND REDIRECTABLE BY STAFF.
--- NOTE | 2022-03-27 04:54 | NUR ---
SHIFT SUMMARY: PT A/O X 3, STANDBY ASSIST WITH WALKER. PT STEADY ON FEET, NEEDS ASSISTANCE WITH LINES, ORTIZ. PT CONTINUES TO BE ON 2 LPM VIA NC. LS CLEAR WITH OCCASIONAL COUGH. PT DRAINING CLEAR YELLOW URINE. PT SLEPT THROUGH MOST OF THE NIGHT WAKING TO USE BATHROOM TO HAVE A BM. NO C/O PAIN OR NAUSEA. STAYED IN ROOM WITH PATIENT. BOTH WERE FORGETFUL THROUGH THE NIGHT TO USE CALL LIGHT FOR ASSISTANCE. PT SET OFF BED ALARM A COUPLE TIMES. CAME OUT OF ROOM EARLY EVENING, ONCE WITH HER PANTS OFF TO GET ASSISTANCE FOR HER ALTHOUGH SHE WAS REQUESTED TO USE CALL LIGHT.
--- NOTE | 2022-03-27 04:59 | NUR ---
SHIFT SUMMARY: PT A/O X 2, PT CONTINUES TO BE IN LIGIA VEST DUE TO IMPULSIVE BEHAVIORS, FORGETTING HE HAS LIMITATIONS WITH AMBULATION AND ATTEMPTS TO GET OOB WITHOUT ASSISTANCE. PT CONTINUED TO BE IMPULSIVE WHEN HE WANTED TO GET UP TO URINATE THROUGH THE NIGHT. PT DID NOT USE CALL LIGHT BUT WOULD BE HEARD STRUGGLING TO ATTEMPT TO GET UP OOB. WHEN ASSISTED AND RE-ORIENTED TO SITUATION PT WOULD STATE HE KNEW WHY HE WAS HERE AND WOULD FOLLOW DIRECTIONS WELL. PT PLEASANT AND COOPERATIVE WITH CARES. PAIN MANAGED WITH TYLENOL THROUGH THE NIGHT. INCISION DRESSING CDI.
[2022-03-27 05:23] LABS: Albumin, Blood 2.7 g/dL (3.4-5.0); Anion Gap 6 mmol/L (6-16); Blood Urea Nitrogen 9 mg/dL (8-24); Bun/Creatinine Ratio 13.5 (12.0-20.0); CO2, Blood 26 mmol/L (21-32); Calcium, Blood 8.7 mg/dL (8.5-10.1); Chloride, Blood 104 mmol/L (98-108); Creatinine, Blood 0.67 mg/dL (0.60-1.20); Glomerular Filtration Rate 100 (60-); Glucose, Blood 95 mg/dL (70-99); Magnesium, Blood 1.3 mg/dL (1.6-2.4); Phosphorus, Blood 3.5 mg/dL (2.5-4.9); Potassium, Blood 4.2 mmol/L (3.5-5.5); Sodium, Blood 136 mmol/L (136-145)
--- NOTE | 2022-03-27 17:58 | NUR ---
SHIFT SUMMARY- PT IS ALERT INTERMITENTYLY CONFUSED. HE IS EATING AND DRINKING WELL. HE HAS NOT ATTEMPTED TO GET UP WITHOUT ASSISTANCE THIS SHIFT. HE WORKED WITH PT. UP TO THE RECLINER. AND CALL LIGHT IS CHRISTOPHER HEATON.
[2022-03-28 04:52] LABS: Hematocrit 26.8 % (37.0-53.0); Hemoglobin 8.9 g/dL (13.5-17.5)
--- NOTE | 2022-03-28 04:53 | NUR ---
SHIFT SUMMARY 71 YR M ADMITTED ON FOR BROKEN LEFT HIP. FULL CODE. NO ACUTE CHANGES THIS SHIFT. PT WAS UP TO COMMODE THIS SHIFT WHICH CAUSED HIM A GREAT DEAL OF PAIN IN HIS LEFT HIP. HE WAS HAPPY WITH TYLENOL A PAIN RELEIVER AND DID NOT C/O PAIN AGAIN BUT HE COULD BE HEARD MOANING WHEN HE TRIED TO CHANGE POSITION IN BED. HE IS CONFUSED AT TIMES AND HIS SPEECH CAN BE A BIT GARBLED BUT HE IS WELL SPOKEN AND LUCID AT OTHER TIMES. HE BECAME EMOTIONAL WHEN TALKING ABOUT HIS FAMILY. HE STATES THAT HE WANTS TO GO HOME AND HE IS FRUSTRATED WITH THIS INJURY.
--- NOTE | 2022-03-28 17:58 | NUR ---
SHIFT SUMMARY- PT IS ALERT, PLESANT AND COOPERATVIE. INTERMITENT CONFUSION. PT WORKED WITH PT THIS SHIFT. THIS AFTERNOON AFTERLUNCH, WAFER FAB OPERATOR FOUND PT ON THE FLOOR ON HIS HANDS AND KNEES. PT REPORTED THAT HE GOT UP TO GET HIS PHONE, REALIZED THAT HE SHOULD NOT BE UP HE TURNED TO GET BACK INTO BED AND FELL ONTO HIS KNEES. HE REPORTED SOME SORENESS IN HIS KNEE BUT DID NOT THINK THAT HE HAD HURT ANYTHING ELSE. DR. MOSLEY NOTIFIED, DR. BEAR NOTIFIED. XRAYS ORDERED. IRIS FILED. PT SPOKE TO HIS ABOUT THE FALL. HE IS EATING AND DRINKING WELL. HE IS RECIVING TYLONEL FOR PAIN NEEDED. HIS BED IS IN THE LOW POSITION AND CALL LIGHT IS WITHIN REACH. BED ALARM IS ON
--- NOTE | 2022-03-29 05:16 | NUR ---
SHIFT SUMMARY 71 YR M ADMITTED ON 03/15/22 FOR LEFT HIP FX. FULL CODE. NO ACUTE CHANGES THIS SHIFT. PT HAD A FALL YESTERDAY ON DAY SHIFT BUT STATES THAT HE FEELS FINE AND THAT HE DOES NOT FEEL IF HE HURT HIMSELF. THIS NURSE HAD A TALK WITH HIM ABOUT HIS SAFETY AND CALLING FOR HELP WHEN HE FEELS THAT HE NEEDS TO GET UP. HE PROMISED NOT TO GET UP BY HIMSELF AGAIN AND STATED THAT THE FALL SCARED HIM. HE HAS INTERMITTENT CONFUSION BUT IS OTHERWISE ABLE TO COMMUNICATE AND RADHA HIS NEEDS BE KNOWN. HE IS TAKING TYLENOL FOR PAIN AND HE SEEMS VERY UNCOMFORTABLE AT TIMES. HE STATED THAT HIS INCISION IS STARTING TO ITCH AND THAT IT IS DRIVING HIM CRAZY.
--- NOTE | 2022-03-29 11:34 | NUR ---
TRANSFER FROM [phone] TO [phone]. REPORT RECIEVED FROM KAITLIN KRUGER. THIS RN HAS REVIEWED AND AGREES WITH PREVIOUS RN ASSESSMENTS.
--- NOTE | 2022-03-29 18:04 | NUR ---
SHIFT SUMMARY A/OX3, PLEASANT AND COOPERATIVE WITH CARE. CALLS APPROPRIATELY. 2P MAX ASSIST WITH GB AND FWW FOR TRANSFERS. AQUACEL DRESSING TO L. HIP C/D/I. VSS, NO ACUTE CHANGES AT THIS TIME. BED IN LOWEST POSITION WITH CALL LIGHT IN REACH. WILL CONTINUE TO MONITOR AND REPORT TO ONCOMING RN.
[2022-03-30 05:57] LABS: Hematocrit 28.3 % (37.0-53.0); Hemoglobin 9.4 g/dL (13.5-17.5)
[2022-03-30 06:19] LABS: Bun/Creatinine Ratio 14.5 (12.0-20.0); Creatinine, Blood 0.76 mg/dL (0.60-1.20); Magnesium, Blood 1.6 mg/dL (1.6-2.4); Potassium, Blood 4.3 mmol/L (3.5-5.5)
--- NOTE | 2022-03-30 06:46 | NUR ---
SHIFT SUMMARY: PATIENT IS UP TO THE BSC WITH ASSIST OF 1-2 AND FWW WITH GB. VSS, REPORT LEFT LEG/HIP PAIN 8/10 WITH ACTIVITY. TYLENOL, REPOSITIONING AND ELEVATION ARE EFFECTIVE.
--- NOTE | 2022-03-30 17:04 | NUR ---
SHIFT SUMMARY PT AXO TO SELF, PLACE, EVENT AND FOLLOWING DIRECTIONS THOUGH THE SHIFT GOES ON, PT GROWING INCREASINGLY ARGUMENTATIVE AND AGGITATED. HE STATES HE IS ANGRY HIS "ISNT SPENDING ENOUGH TIME WITH" HIM. PT' SPOUSE IN THE ROOM VISITING BUT THEN LEFT TO SPEND THE NIGHT AT A "[facility]" AND WAS VISUALLY UPSET AND STATED SHE WANTED TO "DE-STRESS." PT UP TO CHAIR X1 THIS SHIFT WITH 2-3 ASSIST WITH FWW AND GB WITH LEFT TOE TOUCH. DRESSING CDI. MEDICATED FOR PAIN PER EMAR X2 SO FAR THIS SHIFT. VSS. 1 EPISODE OF BLACK TARRY STOOL THIS SHIFT. SAMPLE SENT TO LAB FOR OCCULT GUIAC, RESULTS PENDING. BED IN LOW POSITION, CALL LIGHT WITHIN REACH, BED ALARM ON.
--- NOTE | 2022-03-31 02:54 | NUR ---
A/0X 3-4; DISORIENTED TO SITUATION AT TIMES AND FORGETFUL /IMPULSIVE (THROWING LEGS OVER THE SIDE RAIL IN ATTEMPT TO EXIT BED ALONE). L HIP DRESSINGS INTACT; SMALL AMOUNT OF STRIKETHROUGH DRAINAGE TO DISTAL DRSG. 2X MAX ASSSIST TO BSC. LOOSE, SMALL BLACK TARRY STOOL. INC AT TIMES. C/O L HIP AND KNEE PAIN; PRN TYLENOL GIVEN. ICE PACK PROVIDED - NOT HELPFUL PER PATIENT. FREQUENT REPOSITIONING THROUGHOUT SHIFT. PATIENT CONTINUES TO VERBALIZE DISPLEASURE WITH HIS 'S CHOICE TO GO SLEEP AT A HOTEL. THIS RN CONTINUED TO EXPLAIN THAT NURSES ENCOURAGE FAMILY MEMBERS TO LEAVE TO SLEEP AT NIGHT. SLEEP PROMOTED, BED ALARM SET, CALL LIGHT IN REACH; ENCOURAGED TO MAKE NEEDS KNOWN.
[2022-03-31 09:24] LABS: Hematocrit 28.5 % (37.0-53.0); Hemoglobin 9.6 g/dL (13.5-17.5); Mean Corpuscular HGB 33.9 pg (26.0-34.0); Mean Corpuscular HGB Conc 33.7 g/dL (31.5-36.5); Mean Corpuscular Volume 101 fL (80-100); Mean Platelet Volume 9.4 fL (9.1-12.4); Platelet Count 364 K/mm3 (150-400); RDW Coefficient Variation 13.8 % (11.7-14.2); RDW Standard Deviation 51.3 fL (35.1-46.3); Red Blood Cell Count 2.83 M/mm3 (4.30-5.90); White Blood Cell Count 4.25 K/mm3 (4.00-11.30)
[2022-03-31 12:30] LABS: Stool Occult Blood Guaiac 1 Pos (Neg)
--- NOTE | 2022-03-31 17:44 | NUR ---
SHIFT SUMMARY PT IS AxOx3-4. COOPERATIVE WITH CARE. PT UP IN CHAIR FOR MOST OF DAY SHIFT WITH BLE ELEVATED. PT IN ROOM FOR VISIT THIS SHIFT. PT REPORTS PAIN IN LLE, MEDICATED PER EMAR. PT GIVEN BOWEL CARE DRINK. PT HAD ONE SMEAR OF BM THAT WAS BLACK. PT SURGICAL SITE INTACT WITH MODERATE AMOUND OF DARK DRAINAGE SHOWING THROUGH BANDAGE. SURGEON TO DO DRESSING CHANGES. PT IS CURRENTLY SITTING IN CHAIR EATING DINNER. VITALS REVIWED. CALL LIGHT IN REACH. PT DENIES ANY NEEDS AT THIS TIME.
--- NOTE | 2022-04-01 04:20 | NUR ---
Client had black, tarry bowel movement early in the evening. Woke up in the evening to urinate and after doing so only returned to resting position in bed with staff prompting. Client was AOx3 early in shift before being closer to AOx2 later in shift, several times calling in staff to help him remember the last several days. Client was asking me where I had driven him yesterday and why he was in the car with me before I explained that we had only met hours prior when I took over as his nurse. Client slept through rest of shift. Call light left within reach.
[2022-04-01 05:36] LABS: Hematocrit 25.7 % (37.0-53.0); Hemoglobin 8.9 g/dL (13.5-17.5); Mean Corpuscular HGB Conc 34.6 g/dL (31.5-36.5); Mean Corpuscular Volume 98 fL (80-100); Mean Platelet Volume 9.4 fL (9.1-12.4); Platelet Count 326 K/mm3 (150-400); RDW Coefficient Variation 13.7 % (11.7-14.2); RDW Standard Deviation 49.1 fL (35.1-46.3); Red Blood Cell Count 2.62 M/mm3 (4.30-5.90); White Blood Cell Count 4.87 K/mm3 (4.00-11.30)
[2022-04-01 06:15] LABS: Creatinine, Blood 0.75 mg/dL (0.60-1.20); Potassium, Blood 3.7 mmol/L (3.5-5.5)
--- NOTE | 2022-04-01 18:27 | NUR ---
SHIFT SUMMARY A/OX3, FORGETFUL. 2P ASSIST WITH FWW AND GB, TTWB TO LLE. C/O PAIN TO LLE WITH MOVEMENT, PRN TYLENOL GIVEN. AQUACEL TO L. HIP C/D/I. VSS, NO ACUTE CHANGES AT THIS TIME. BED IN LOWEST POSITION WITH CALL LIGHT IN REACH. WILL CONTINUE TO MONITOR AND REPORT TO ONCOMING RN.
--- NOTE | 2022-04-02 04:30 | NUR ---
SUMMARY: PT A/OX3, SPECIFIES NEEDS AND IS PLEASANT AND COOPERATIVE W/CARE. HE'S MILDLY FORGETFULL AT TIMES W/BED ALARM ON FOR FALL RISK. PT UP W/2PA, FWW AND GB VIA TTWB BUT WASN'T OOB THIS SHIFT D/T L.LEG PAIN. TYLENOL RECIEVED PRM FOR TOLERABLE EFFECT BUT HE REPORTS PAIN IS GENERALLY WORSE THEN PREVIOUS. WE DISCUSSED POSSIBLE NEED FOR ADDTIONAL PRN MEDS AND HE PLANS TO DISCUSS THIS W/DAY MD IF NECCESSARY. AQUACEL DX REMAINS INTACT TO L.HIP W/SMALL AMT OF OLD BLOOD OBSERVED. HE USED URINAL AD KIMBERLEY AND GRADUALLY REPOSITIONED SELF IN BED, ASSIST PROVIDED PRN. NO ACUTE CHANGES, VSS/AFEBRILE. WCTM/REPORT TO DAY RN.
[2022-04-02 05:32] LABS: Hematocrit 26.5 % (37.0-53.0); Hemoglobin 9.1 g/dL (13.5-17.5)
--- NOTE | 2022-04-02 18:41 | NUR ---
SHIFT SUMMARY PT MOVING WELL. GETTING OOB WITH 1P ASSIST TO THE CHAIR OR BSC. DRESSING TO L HIP INTACT. PT MEDICATED FOR PAIN TWICE THIS SHIFT. PT STATES TYLENOL IS NOT WORKING VERY WELL. THIS WAS RELAYED TO DR. MOSLEY. MELATONIN TO START TONIGHT TO HELP WITH SLEEP. PRN AND SCHEDULED MIRALAX GIVEN THIS SHIFT. PT WAS ABLE TO HAVE A BM AFTERWARDS. NO OTHER ACUTE CHANGES IN ASSESSMENT AT THIS TIME. VS REIVEWED. PT UP IN CHAIR ON PHONE. CALL LIGHT IN REACH. DENIES OTHER NEEDS AT THIS TIME.
--- NOTE | 2022-04-02 20:20 | NUR ---
TYLENOL HAD BEEN INEFFECTIVE AT CONTROLLING PAIN ON DAY SHIFT SO RX'D PO TORADOL AND NORCO PRN. WILL EVALUATE NEED AND ADMINISTER INDICATED.
--- NOTE | 2022-04-03 05:55 | NUR ---
SUMMARY: PT A/OX4, CALLS APPROPRIATELY TO SPECIFY NEEDS AND IS PLEASANT AND COOPERATIVE W/CARE. HE WAS MEDICATED W/X2 DOSES PO TORADOL PRN FOR TOLERABLE RELIEF OF L.HIP PAIN S/P FX W/SURGICAL REPAIR. AQUACELL DX REMAINS C/D/I W/FAN TO POSSIBLY BE REMOVED TODAY. HE'S UP W/1PA, FWW AND TTWB. PT USES URINAL INDEPENDENTLY AND WAS ASSISTED W/REPOSITIONING PER REQUEST. PT WASN'T IMPULSIVE BUT HAS BED ALARM ON FOR SAFETY AND HX FALL. HE SLEPT MAJORITY OF SHIFT AFTER PAIN MANAGEMENT AND RECIEVING HS MELATONIN PER REQUEST. NO ACUTE CHANGES, VSS/AFEBRILE. WCTM AND REPORT TO DAY RN.
--- NOTE | 2022-04-03 20:09 | NUR ---
SUMMARY- PT A/O X4. PLEASANT AND COOPERATIVE. PT UP IN CHAIR THROUGH LUNCH AND DINNNER. PAIN CONTROLLED WITH LORTAB. DR GALLARDO DC'D FAN AND NEW DRESSING TO R HIP 1800. PT USES URINAL. TOLERATING FOOD AND FLUID. PLAN FOR DC TO SNF IN [place] FRIDAY
--- NOTE | 2022-04-04 04:35 | NUR ---
SHIFT SUMMARY PATIENT HAD NO ACUTE CHANGES. AXOX 4 AND ONE ASSIST W/FWW TO BSC. USES URINAL AT BEDSIDE. NO IV ACCESS. REPORTED LEFT HIP PAIN X ONE AND NORCO GIVEN PER EMAR. VSS/AFEBRILE. DENIES SOB AND N/V. SCHEDULE STOOL SOFTNER GIVEN. REPORTED ISOMNIA AND GIVEN MELATONIN 6 MG PER EMAR. PATIENT ABLE TO SLEEP. DRESSING SITE TO LEFT HIP C/D/I. CALL LIGHT IN REACH. BED IN LOWEST POSITION. WILL CONTINUE TO MONITOR UNTIL DAY SHIFT NURSE ASSUMES CARE.
--- NOTE | 2022-04-04 20:03 | NUR ---
SUMMARY- PT A/O X3-4- FORGETFUL. GRANDIOSE AT TIMES. VERY TALKATIVE AND EMOTIONAL. PT UP TO CHAIR FOR 2 HOURS TODAY. UP USING WALKER, TTWB, GOOD STRENGTH IN RLE. TOLERATES ACTIVITY WELL. C/O PAIN IN L FEMUR, MEDICATED WITH VICODIN ONCE TODAY. ASKED OFTEN FOR PAIN MEDS AND FORGOT HE HAD GOTTEN ANY. PT HAD A LG BM TODAY. APPRAISER OIL AND WATER REPORTED LOOSE, DARK. PT TOLERATING FOOD AND FLUID AND VOIDS IN THE URINAL- CALLED AND GAVE UPDATE OF PLANNED DC TO SNF IN [place] FRIDAY. WANTS TO CALL HER FOR UPDATE. RELAYED ALL TO TATYANA MADRIGAL.
--- NOTE | 2022-04-05 04:47 | NUR ---
SHIFT LARGELY UNREMARKABLE. CLIENT SLEPT THROUGH MOST OF NIGHT. PATIENT STARTED OFF SHIFT VERY PLEASANT AND AGREEABLE AND BECAME MORE AGITATED THROUGHOUT EVENING. SLEPT WELL AFTER JEWISH THOUGHT PROFESSOR DOSE OF MELATONIN AND NARCOTIC PAIN MEDICATION. CALL LIGHT LEFT WITHIN REACH.
[2022-04-05 05:37] LABS: Hematocrit 26.6 % (37.0-53.0); Hemoglobin 9.2 g/dL (13.5-17.5); Mean Corpuscular HGB 34.2 pg (26.0-34.0); Mean Corpuscular HGB Conc 34.6 g/dL (31.5-36.5); Mean Corpuscular Volume 99 fL (80-100); Mean Platelet Volume 9.4 fL (9.1-12.4); Platelet Count 284 K/mm3 (150-400); RDW Coefficient Variation 13.2 % (11.7-14.2); RDW Standard Deviation 47.9 fL (35.1-46.3); Red Blood Cell Count 2.69 M/mm3 (4.30-5.90)
[2022-04-05 06:03] LABS: Albumin, Blood 2.8 g/dL (3.4-5.0); Anion Gap 5 mmol/L (6-16); Blood Urea Nitrogen 8 mg/dL (8-24); Bun/Creatinine Ratio 12.7 (12.0-20.0); CO2, Blood 28 mmol/L (21-32); Calcium, Blood 9.4 mg/dL (8.5-10.1); Chloride, Blood 100 mmol/L (98-108); Creatinine, Blood 0.63 mg/dL (0.60-1.20); Glomerular Filtration Rate 102 (60-); Glucose, Blood 92 mg/dL (70-99); Phosphorus, Blood 3.9 mg/dL (2.5-4.9); Potassium, Blood 4.3 mmol/L (3.5-5.5); Sodium, Blood 133 mmol/L (136-145)
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
--- NOTE | 2022-04-05 18:07 | NUR ---
PT CONTINUES TO BE FIXATED ON DIFFERENT SUBJECTS. TALKING ON PHONE MOST ALL OF DAY. MED FOR PAIN TWICE PAIN. L LEG SWOLLEN, DR AGUILAR ORDERED VENOUS DOPPLER, NEGATIVE FOR CLOTS. DR GALLARDO IN TO SEE PT. OKAY WITH IN STANDING FLAT FOOT BUT ONLY MINIMAL PRESSURE. SURG SITE BANDAGE STILL CDI. DID HAVE DARK STOOL AGAIN TODAY. BED IN LOW POSITION, CALL LITE IN REACH, CALLS APPROP OR JUST CALLS OUT.
--- NOTE | 2022-04-06 04:57 | NUR ---
SHIFT LARGELY UNREMARKABLE. CLIENT WAS EXPERIENCING PAIN EARLY IN THE EVENING BUT FELT BETTER AND SLEPT THROUGH MOST OF THE NIGHT AFTER NARCO ADMINISTRATION. CALL LIGHT LEFT WITHIN REACH.
--- NOTE | 2022-04-06 17:27 | NUR ---
SHIFT SUMMARY PATIENT MEDICATED FOR PAIN X2. PATIENT DENIES NAUSEA AND SHORTNESS OF BREATH. PATIENT IS A 1P WITH A FWW FOR TRANSFERS. PATIENT PLEASANT THROUGHOUT DAY, WATCHING FOOTBALL. PATIENT HAD LARGE BM THIS AFTERNOON. PATIENT IS EATING AND DRINKING WELL. PATIENT WORKED WITH PT, RECOMMENDING SNF. PATIENT PLAN TO GO TO SNF IN [place]. PATIENT IS PLEASANT AND COOPERATIVE WITH CARE.
--- NOTE | 2022-04-07 03:18 | NUR ---
PERSONAL CARE SERVICE PROVIDER SUMMARY QUITE TALKATIVE AT HS, VOICED DESIRES TO BE CLOSER TO HOME IN ANOTHER FACILITY. TOLERATED HS MEDS INCLUDING ANALGESIC FOR HIP PAIN. MEDS EFFECTIVE, HAS BEEN RESTING QUIETLY WITH FEW INTERRUPTIONS. CALL LIGHT IN REACH.
--- NOTE | 2022-04-07 17:29 | NUR ---
SHIFT SUMMARY PATIENT MEDICATED FOR PAIN X2, PATIENT DENIES NAUSEA AND SHORTNESS OF BREATH. PATIENT IS A 1P WITH FWW. PATIENT DID EXERCISES IN BED RECOMMENDED FROM PT. PATIENT EAGER TO GO TO SNF. PER TECHNICAL WRITER AND EDITOR NOTES, PATIENT GOING TO SNF IN [place] ON FRIDAY, 04/09. PATIENT TALKED WITH TODAY. PATIENT IS EATING AND DRINKING WELL. PATIENT IS PLEASANT AND COOPERATIVE WITH CARE.
--- NOTE | 2022-04-08 04:37 | NUR ---
PT IS A/OX3, PLEASANT AND COOPERATIVE, THE PT IS UP WITH ONE PERSON ASSIST USEING THE FWW TO THE BSC. THE PT APPEARS TO BE BREATHING EASILY ON RA AT THIS TIME. THE PT WAS MEDICATED FOR PAIN X1 SO FAR THIS SHIFT. THE PT WAS GIVEN A SLEEP AID AT BEDTIME. THE PT APPEARED TO BE ASLEEP FOR MOST OF THE NIGHT. CALL LIGHT IN REACH. WILL CONTINUE TO MONITOR AND ASSESS FOR CHANGES
--- NOTE | 2022-04-08 16:59 | NUR ---
PATIENT IS PLANNING ON DISCHARGING TOMORROW AM. HE HAS A LONG RIDE TO GET TO HIS PLACEMENT AND IS REQUESTING THAT HE DOESN'T RECEIVE BOWEL MEDICATION. HE DID HAVE A MED BM THIS SHIFT. HE WAS ABLE TO TALK WITH THE SURGEON TODAY. THE SURGEON LEFT A NOTE ON HIS WHITE BOARD. THE PATIENT SHOULD FOLLOW UP IN TWO WEEKS WITH ORTHO AND REMAIN ON TOE TOUCH WEIGHT BEARING UNTIL THAT TIME. PATIENT HAS BEEN PLEASANT THIS SHIFT. HE DOES HAVE PAIN THAT IS MANAGED WELL WITH NORCO. THE PAIN IS MANIFESTED IN THE LEFT HIP AND LEFT KNEE.
--- NOTE | 2022-04-09 04:32 | NUR ---
SHIFT HAS BEEN LARGELY UNREMARKABLE. PATIENT TOOK NIGHTTIME MELATONIN AND PRN NARCO AND SLEPT THOUGH MAJORITY OF REMAINDER OF SHIFT. PATIENT IS ANTICIPATING DISCHARGE TO FACILITY IN [place] AND EXPRESSED HIS DESIRE TO BATHE BEFORE HIS TRIP SEVERAL TIMES. CALL LIGHT LEFT WITHIN REACH.
[2022-04-09 11:17] LABS: SARS-Cov-2 (COVID-19) PCR, MMC NEGATIVE (NEGATIVE)
[2022-04-09] MEDS ORDERED: ASCO500 PO (11:42)
[2022-04-09] MEDS ORDERED: FERSU300 PO (11:43)
[2022-04-09] MEDS ORDERED: XARELTO20 MG PO (11:44)
[2022-04-09] MEDS ORDERED: MIRALAX17 GM PO (11:44)
[2022-04-09] MEDS ORDERED: THERA-D2000 UNIT PO (11:45)
[2022-04-09] MEDS ORDERED: B-1100 MG PO (11:45)
--- NOTE | 2022-04-09 12:00 | NUR ---
PATIENT D/C'D TO [facility] IN [place]. REPORT CALLED TO GUNNAR. C PACKET SENT WITH OPERATIONS PLANNER. PATIENT TO FOLLOW UP WITH PCP AND PLANS TO FOLLOW UP WITH AN ORTHO DOCTOR IN [place]. D/C PACKET GIVEN TO OPERATIONS PLANNER. PATIENT DENIES ANY FURTHER QUESTIONS OR CONCERNS.
== END 2022-04-09 11:58 | DRG 481 ==
LOC: SURS 17:19 → MEDS 03-15 15:48 → PCU 03-15 15:48 → SURS 03-15 15:48 → PCU 03-15 16:32 → MEDS 03-22 21:58
PROVIDERS: Internal Medicine; Orthopaedic Surgery; ADMIT Internal Medicine
PROC: 0QS734Z Reposition Left Upper Femur with Internal Fixation Device, Percutaneous Approach (ICD-10-PCS; 2022-03-18)
PROC: 30233N1 Transfusion of Nonautologous Red Blood Cells into Peripheral Vein, Percutaneous Approach (ICD-10-PCS; principal; 2022-03-19)
DX: S72.122A Displaced fracture of lesser trochanter of left femur, initial encounter for closed fracture (principal); D62 Acute posthemorrhagic anemia; F10.239 Alcohol dependence with withdrawal, unspecified; E87.1 Hypo-osmolality and hyponatremia; I10 Essential (primary) hypertension; K21.9 Gastro-esophageal reflux disease without esophagitis; N40.0 Benign prostatic hyperplasia without lower urinary tract symptoms; W10.9XXA Fall (on) (from) unspecified stairs and steps, initial encounter; F41.9 Anxiety disorder, unspecified; F03.90 Unspecified dementia, unspecified severity, without behavioral disturbance, psychotic disturbance, mood disturbance, and anxiety; D63.8 Anemia in other chronic diseases classified elsewhere; E83.42 Hypomagnesemia; R39.11 Hesitancy of micturition; Z85.46 Personal history of malignant neoplasm of prostate; Z98.890 Other specified postprocedural states; Y92.019 Unspecified place in single-family (private) house as the place of occurrence of the external cause
CPT/HCPCS: 36415; 72170; 72192; 73552; 73590; 73701; 80048; 80053; 80069; 82140; 82270; 82272; 82607; 82728; 82746; 83540; 83550; 83735; 85014; 85018; 85025; 85027; 85610; 85730; 86850; 86900; 86901; 86923; 93005; 93010; 93971; 94660; 94760; 94762; 97110; 97116; 97162; 97530; A9270; C1713; C1751; C1769; J0360; J0690; J1100; J1885; J2060; J2405; J2704; J3010; J3411; J3475; J7030; J7050; J7120; P9016; Q9967; U0004